=== PATIENT | female | born 1985 | race Hispanic/Latino ===

== ENCOUNTER → 2017-12-15 | Outpatient (CLI) | payer BC ==
[~2017-12-15] MED LIST: ACETAMINOPHEN-1 EAC4; DIATRIZOATE MEGL/DIATRIZOA SOD 30 ML BTL PO ONE; FLAGYL250 MG PO; IOPAMIDOL 370 MG/ML 200 ML INFUS..BTL INJ ONE; LEVAQUIN500 MG PO; SODIUM CHLORIDE 0.9% 50ML 50 ML ONE
--- NOTE | 2017-12-15 19:07 | Diagnostic Imaging Report ---
ADDENDUM #1 Addendum impression: Impression should state uncomplicated sigmoid diverticulitis. Signed by: Dr. Florentino Friedman M.D. on 12/16/2017 11:55 AM ORIGINAL REPORT EXAMINATION: CT of the abdomen and pelvis with contrast. TECHNIQUE: Helical CT images of the abdomen and pelvis were performed from the lung bases to the lesser trochanters after the intravenous administration of 100 cc of Isovue 370 and the oral administration of Gastrografin. Coronal and sagittal reformatted images were obtained. COMPARISON: May 05, 2017 CLINICAL HISTORY:Abdominal pain DISCUSSION: ABDOMEN/PELVIS: LOWER THORAX:Unremarkable. HEPATOBILIARY: No focal hepatic lesions. No intra-or extrahepatic biliary ductal dilation. The gallbladder is normal. SPLEEN: No splenomegaly. PANCREAS: No focal masses or ductal dilatation. ADRENALS: No adrenal nodules. KIDNEYS/URETERS: No hydronephrosis, stones, or solid mass lesions. PELVIC ORGANS/BLADDER: The bladder is normal. PERITONEUM/RETROPERITONEUM: No abscess. LYMPH NODES: No intra-abdominal, retroperitoneal, pelvic or inguinal lymphadenopathy. VESSELS: The celiac trunk,superior and inferior mesenteric and bilateral renal arteries are patent The portal, superior mesenteric and splenic veins are patent. GI TRACT: Sigmoid diverticulitis with wall thickening and adjacent stranding. BONES AND SOFT TISSUE: No bony destructive lesions. No soft tissue abnormalities. IMPRESSION: Uncomplicated sigmoid diverticulosis. Signed by: Dr. Florentino Friedman M.D. on 12/15/2017 7:03 PM
== END ==
LOC: CT 17:29
PROVIDERS: ATTEND Internal Medicine Gastroenterology
DX: R10.32 Left lower quadrant pain (principal)
CPT/HCPCS: 74177; 81025; Q9967

== ENCOUNTER 2017-12-25 23:52 | Inpatient (IN) | payer BC, OTHER ==
[~2017-12-25] VITALS: Ht 157.5 cm; Wt 102.7 kg
[~2017-12-25 23:52] MED LIST changes: -DIATRIZOATE MEGL/DIATRIZOA SOD 30 ML BTL PO ONE; -IOPAMIDOL 370 MG/ML 200 ML INFUS..BTL INJ ONE; -SODIUM CHLORIDE 0.9% 50ML 50 ML ONE
--- OUTSIDE RECORDS SUMMARY | 2017-12-25 23:54 | XMS REPORT ---
Author [facility] Address Unknown Phone Unavailable Care Team Providers Care Vision Rehabilitation Therapist Name Role Phone LEONARDO SCHNEIDER Unavailable Unavailable MONSTER HESS Unavailable Unavailable Problems This patient has no known problems. Allergies, Adverse Reactions, Alerts This patient has no known allergies or adverse reactions. Medications This patient has no known medications. Results Test Description Test Time Test Comments Text Results Atomic Results Result Comments CT ABDOMEN/PELVIS W [place] [address] Patient Name: YOCASTA PELAYO MR #: [id number] : 1985 Age/Sex: 32/F Req #: [id number] [facility] Physician: Ordered by: LEONARDO SCHNEIDER MD Report #: [id number] Location: CT Room/Bed: Procedure: [id number] CT/CT ABDOMEN/PELVIS W Exam Date: 12/15/17 Exam Time: 184 REPORT STATUS: Signed ADDENDUM #1 Addendum impression: Impression should state uncomplicated sigmoid diverticulitis. Signed by: Dr. Erum Dey M.D. on 12/16/2017 11:55 AM ORIGINAL REPORT EXAMINATION : CT of the abdomen and pelvis with contrast. TECHNIQUE: Helical CT images of the abdomen and pelvis were performed from the lung bases to the lesser trochanters after the intravenous administration of 100 cc of Isovue 370 and the oral administration of Gastrografin. Coronal and sagittal reformatted images were obtained. COMPARISON: May 05, 2017 CLINICAL HISTORY:Abdominal pain DISCUSSION: ABDOMEN/PELVIS: LOWER THORAX:Unremarkable. HEPATOBILIARY: No focal hepatic lesions. No intra-or extrahepatic biliary ductal dilation. The gallbladder is normal. SPLEEN: No splenomegaly. PANCREAS: No focal masses or ductal dilatation. ADRENALS: No adrenal nodules. KIDNEYS/URETERS: No hydronephrosis, stones, or solid mass lesions. PELVIC ORGANS/BLADDER: The bladder is normal. PERITONEUM/RETROPERITONEUM: No abscess. LYMPH NODES: No intra-abdominal, retroperitoneal, pelvic or inguinal lymphadenopathy. VESSELS: The celiac trunk,superior and inferior mesenteric and bilateral renal arteries are patent The portal, superior mesenteric and splenic veins are patent. GI TRACT: Sigmoid diverticulitis with wall thickening and adjacent stranding. BONES AND SOFT TISSUE: No bony destructive lesions. No soft tissue abnormalities. IMPRESSION: Uncomplicated sigmoid diverticulosis. Signed by: Dr. Erum Dey M.D. on 12/15/2017 7:03 PM Dictated By: ERUM DEY MD [id number] Transcribed By: KAUSHAL on 12/15/17 2853 COPY TO: LEONARDO SCHNEIDER MD CT ABDOMEN/PELVIS [place] [address] Patient Name: YOCASTA PELAYO MR #: [id number] : 1985 Age/Sex: 31/F Req #: [id number] Physician: Ordered by: MONSTER HESS MD Report #: [id number] Location: Room/Bed: Procedure: [id number] CT/CT ABDOMEN/PELVIS W Exam Date: 05/05/17 Exam Time: 0745 REPORT STATUS: Signed PROCEDURE: CT ABDOMEN AND PELVIS WITH CONTRAST TECHNIQUE: The abdomen and pelvis were scanned utilizing a multidetector helical scanner from the diaphragm to the lesser trochanter after the IV administration of 100 cc of Isovue 370 and the oral administration of Gastroview and water. Coronal and sagittal multiplanar reformations were obtained. COMPARISON: CT abdomen and pelvis 11/24/2016. INDICATIONS: LEFT LOWER QUADRANT PAIN FINDINGS: LOWER THORAX: Normal. HEPATOBILIARY: No focal hepatic lesions. No biliary ductal dilatation. SPLEEN: No splenomegaly. PANCREAS: No focal masses or ductal dilatation. ADRENALS: No adrenal nodules. KIDNEYS/ URETERS: No hydronephrosis, stones, or solid mass lesions. PELVIC ORGANS/ BLADDER: Unremarkable. PERITONEUM / RETROPERITONEUM: No free air or fluid. LYMPH NODES: No lymphadenopathy. VESSELS: Unremarkable. GI TRACT: Numerous diverticuli are present in the descending and sigmoid colon. Circumferential bowel wall thickening is present in the sigmoid colon with adjacent soft tissue inflammatory changes, series 2 image 62. Focal contained pneumoperitoneum is present in the left lower quadrant, adjacent to the region of bowel wall thickening, series 2 image 67. The contained perforation is positioned between the uterus and left ovary. No definite fistula is visualized. No drainable fluid collection. The stomach and small bowel are normal. Normal appendix. BONES AND SOFT TISSUES: Unremarkable. IMPRESSION: Acute diverticulitis with focal contained perforation. No drainable fluid collection. Dictated by: Lydia Herrera M.D. on 05/2017 at 8:34 Electronically approved by: Lydia Herrera M.D. on 2016 at 8:34 Dictated By: LYDIA HERRERA MD 3 Transcribed By: MICA on 05/05/17833 COPY TO: MONSTER HESS MD
[2017-12-26] VITALS (7 sets, daily range): BP systolic 99–118; BP diastolic 61–71
[2017-12-26] MEDS ORDERED: PANTOPRAZOLE 40 MG 10ML VIAL IV STA (00:12)
[2017-12-26] MEDS ORDERED: SODIUM CHLORIDE 0.9% 1000ML 1,000 ML IV STA (00:12)
[2017-12-26] MEDS ORDERED: HYDROMORPHONE 1MG/1ML INJ IV STA (00:12)
[2017-12-26] MEDS ORDERED: ONDANSETRON HCL 4 MG ORAL DISINTEGRATING TAB PO ONE (00:15)
[2017-12-26] MEDS ORDERED: MORPHINE SULFATE 2 MG/ML SYR IV STA (00:28)
[2017-12-26] MEDS: PIPER-TAZ 3.375 GM 50 ML IV SCH ×5 (00:42→23:58)
[2017-12-26 00:49] LABS: BASOPHILS # (AUTO) 0.1 (0.0-0.1); BASOPHILS % 0.3 % (0.0-1.0); EOSINOPHILS # (AUTO) 0.2 (0.0-0.4); EOSINOPHILS % 1.2 % (0.0-6.0); HEMATOCRIT 34.4 % (34.2-44.1); HEMOGLOBIN 10.6 g/dL (12.0-16.0); LYMPHOCYTES # (AUTO) 1.7 (1.0-3.2); MEAN CORPUSCULAR HEMOGLOBIN 25.7 pg (28-32); MEAN CORPUSCULAR HGB CONC 30.8 g/dL (31-35); MEAN CORPUSCULAR VOLUME 83.5 fL (81-99); MONOCYTES # (AUTO) 0.8 (0.2-0.8); MONOCYTES % 4.5 % (4.4-11.3); NEUTROPHILS # (AUTO) 14.2 (2.1-6.9); NEUTROPHILS % 83.6 % (38.7-80.0); PLATELET COUNT 453 x10e3/uL (140-360); RED BLOOD COUNT 4.12 x10e6/uL (3.6-5.1); RED CELL DISTRIBUTION WIDTH 14.5 % (11.7-14.4)
[2017-12-26] MEDS: METRONIDAZOLE 500MG/NS 100ML 100 ML IV SCH ×4 (00:51→17:58)
[2017-12-26 01:08] LABS: ALANINE AMINOTRANSFERASE 13 IU/L (0-55); ALBUMIN 3.1 g/dL (3.5-5.0); ALBUMIN/GLOBULIN RATIO 0.6 (0.8-2.0); ALKALINE PHOSPHATASE 76 IU/L (40-150); ANION GAP 15.1 mmol/L (8-16); BLOOD UREA NITROGEN 8 mg/dL (7-26); BUN/CREATININE RATIO 12 (6-25); CALCIUM 9.7 mg/dL (8.4-10.2); CARBON DIOXIDE 23 mmol/L (22-29); CHLORIDE 102 mmol/L (98-107); CREATININE, SERUM 0.67 mg/dL (0.57-1.11); EST GLOMERULAR FILTRATION RATE > 60 ML/MIN (60-); GLUCOSE 121 mg/dL (74-118); MAGNESIUM 1.6 MG/DL (1.3-2.1); POTASSIUM 4.1 mmol/L (3.5-5.1); SODIUM 136 mmol/L (136-145)
[2017-12-26 01:50] LABS: BILIRUBIN,URINE NEGATIVE (NEGATIVE); CLARITY,URINE CLEAR (CLEAR); COLOR,URINE YELLOW (YELLOW); KETONES,URINE NEGATIVE (NEGATIVE); LEUKOCYTE ESTERASE ,URINE TRACE (NEGATIVE); NITRITE,URINE NEGATIVE (NEGATIVE); PROTEIN,URINE DIPSTICK NEGATIVE (NEGATIVE); URINE UROBILINOGEN 0.2 mg/dL (0.2 - 1)
[2017-12-26 01:59] LABS: BACTERIA,URINE RARE /HPF; EPITHELIAL CELLS,URINE FEW /LPF; RBC,URINE 0-5 /HPF (0-5); WBC,URINE (MAN) 0-5 /HPF (0-5)
[2017-12-26] MEDS ORDERED: DICYCLOMINE HCL10 MG PO (02:01)
[2017-12-26] MEDS ORDERED: CIPROFLOXACIN500 MG PO (02:01)
[2017-12-26] MEDS ORDERED: METRONIDAZOLE500 MG PO (02:01)
[2017-12-26] MEDS ORDERED: ONDANSETRON HCL 4 MG ORAL DISINTEGRATING TAB PO PRN (02:15)
[2017-12-26] MEDS ORDERED: MORPHINE SULFATE 2 MG/ML SYR IV PRN (02:15)
[2017-12-26] MEDS: SODIUM CHLORIDE 0.9% 1000ML 1,000 ML IV SCH ×3 (02:17→17:59)
[2017-12-26] MEDS: PANTOPRAZOLE 40 MG 10ML VIAL IV SCH ×2 (08:58→17:58)
--- NOTE | 2017-12-26 16:28 | History and Physical ---
PCP: Claudio Jaimes MD CHIEF COMPLAINT: Failed outpatient treatment for sigmoid diverticulitis. HISTORY: The patient is a 32-year-old female with history of recurrent diverticulitis. So far this is the 2nd time this year. She has had this for the past 1 to 2 years. The one last year was in April. Patient came in with acute abdominal pain associated with nausea and vomiting. Patient recently saw Dr. Meeks for her diverticulitis. She was given Cipro, Bentyl and Flagyl. The patient's pain did not improve. As a matter of fact, it worsened. When she came in, her WBC was 17,000 associated with a left shift of 84%. The patient had a CT scan of the abdomen and pelvis recently with sigmoid diverticulosis with diverticulitis. The patient is otherwise stable at this time. She did have a low-grade temperature. PAST MEDICAL HISTORY: Recurrent diverticulitis in the sigmoid area. PAST SURGICAL HISTORY: Noncontributory. SOCIAL HISTORY: Patient does not smoke or use alcohol. No recreational drugs. ALLERGIES: NO KNOWN ALLERGIES. HOME MEDICATIONS: Bentyl, Cipro and Flagyl. PHYSICAL EXAMINATION: VITAL SIGNS: Temperature is 99. Blood pressure 107/62. Pulse rate 60. Respirations 22. GENERAL: The patient is in no acute distress. She is awake. HEENT: Normocephalic, atraumatic, anicteric. NECK: Supple grossly. PULMONARY: Diminished breath sounds. CARDIOVASCULAR: Regular rate and rhythm. ABDOMEN: Soft, obese. Tenderness in the left lower quadrant with no guarding or rebound tenderness. EXTREMITIES: No cyanosis or edema. NEUROLOGIC: There is no gross focal deficit. LABORATORY: Sodium is 136, potassium 4.1, chloride 102, bicarb 23, BUN 8, creatinine 0.6, glucose is 122. WBC 17, hemoglobin 10.6, hematocrit 34.4, platelets 453. IMPRESSION: Recurrent diverticulitis of the sigmoid colon, [id number] diverticulitis associated with failed outpatient treatment on previously oral medications given for which the patient did not improve. PLAN: Consultation with Dr. Meeks. Consultation with Dr. Damien Browning. Continue with home medications, IV fluids, pain medication and antibiotics. Job#: [id number]
[2017-12-27] VITALS: BP 99/65
[2017-12-27] MEDS: METRONIDAZOLE 500MG/NS 100ML 100 ML IV SCH ×4 (00:32→17:19)
[2017-12-27 04:00] VITALS: BP 98/50
[2017-12-27] MEDS ORDERED: DIATRIZOATE MEGL/DIATRIZOA SOD 30 ML BTL PO ONE (05:14)
[2017-12-27] MEDS: PIPER-TAZ 3.375 GM 50 ML IV SCH ×3 (05:19→17:19)
[2017-12-27] MEDS ORDERED: SODIUM CHLORIDE 0.9% 50ML 50 ML ONE (05:55)
[2017-12-27] MEDS ORDERED: IOPAMIDOL 370 MG/ML 200 ML INFUS..BTL INJ ONE (05:55)
[2017-12-27 06:15] LABS: BASOPHILS # (AUTO) 0.1 (0.0-0.1); BASOPHILS % 0.5 % (0.0-1.0); EOSINOPHILS # (AUTO) 0.3 (0.0-0.4); EOSINOPHILS % 2.6 % (0.0-6.0); HEMATOCRIT 30.6 % (34.2-44.1); HEMOGLOBIN 9.3 g/dL (12.0-16.0); LYMPHOCYTES # (AUTO) 2.6 (1.0-3.2); MEAN CORPUSCULAR HEMOGLOBIN 26.1 pg (28-32); MEAN CORPUSCULAR HGB CONC 30.4 g/dL (31-35); MONOCYTES # (AUTO) 0.6 (0.2-0.8); MONOCYTES % 5.7 % (4.4-11.3); NEUTROPHILS # (AUTO) 6.7 (2.1-6.9); NEUTROPHILS % 65.9 % (38.7-80.0); PLATELET COUNT 397 x10e3/uL (140-360); RED BLOOD COUNT 3.56 x10e6/uL (3.6-5.1); RED CELL DISTRIBUTION WIDTH 14.6 % (11.7-14.4)
[2017-12-27 06:32] LABS: ALANINE AMINOTRANSFERASE 10 IU/L (0-55); ALBUMIN 2.5 g/dL (3.5-5.0); ALBUMIN/GLOBULIN RATIO 0.7 (0.8-2.0); ALKALINE PHOSPHATASE 56 IU/L (40-150); ANION GAP 9.8 mmol/L (8-16); BLOOD UREA NITROGEN < 5 mg/dL (7-26); CALCIUM 8.7 mg/dL (8.4-10.2); CARBON DIOXIDE 27 mmol/L (22-29); CHLORIDE 109 mmol/L (98-107); CREATININE, SERUM 0.59 mg/dL (0.57-1.11); EST GLOMERULAR FILTRATION RATE > 60 ML/MIN (60-); GLUCOSE 92 mg/dL (74-118); POTASSIUM 3.8 mmol/L (3.5-5.1); SODIUM 142 mmol/L (136-145)
[2017-12-27 06:33] LABS: BUN/CREATININE RATIO 8 (6-25)
--- NOTE | 2017-12-27 06:38 | Consultation ---
DATE OF CONSULTATION: December 26, 2017 HISTORY: Ms. Browning is a patient that we saw in the clinic for the first time on December 15 of this year when she presented with abdominal pain in the left lower quadrant for about a day prior to her admission, no apparent triggering factor. It was sharp, described it as electricity felt in her abdomen. Does not radiate. Pain was moderate. No aggravated factor and no releasing factor. Associated with constipation. She denied at the time red blood stool, melena, nausea, vomiting, hematemesis, fever, or dysphagia. She said that she 6 months ago had similar episode of pain and she was diagnosed with diverticulitis, however, she denied having any colonoscopy. When we saw her in the clinic, we initiated a blood evaluation including urinalysis, CT scan of the abdomen, was started on Bentyl. We treated her constipation with polyethylene glycol, and patient had a followup appointment. However, she came back to the emergency room yesterday with excruciating abdominal pain and she was admitted with a diagnosis of diverticulitis. Again, patient said that this is a second attack in the past 6 months. While she admitted at the emergency room, she had a CT scan of the abdomen with contrast, it showed sigmoid diverticulosis, no evidence of diverticulitis, and I was asked to see her for further evaluation. ALLERGIES: NOTHING. CURRENT MEDICATIONS: Flagyl, piperacillin, morphine, Zofran, Protonix. PAST MEDICAL HISTORY: Only for diverticulosis and bouts of diverticulitis. SURGICAL HISTORY: She has twice. FAMILY HISTORY: Unremarkable. SOCIAL HISTORY: She works. She is , has 4 kids. She does not smoke or does not drink. REVIEW OF SYSTEMS: Unremarkable. PHYSICAL EXAMINATION: GENERAL: Awake, alert, oriented, hemodynamically stable. VITAL SIGNS: Temperature 98, blood pressure 107/62, and pulse 60. NECK: Supple. No node or mass. LUNGS: Clear to auscultation. HEART: Regular-regular rhythm. ABDOMEN: Soft, not tender. No acute sign. EXTREMITIES: No edema. CENTRAL NERVOUS SYSTEM: Motor function grossly intact. ADMITTING LAB: Her white cell count 17,000, hemoglobin 10, hematocrit 34, platelets 453,000. BUN and creatinine normal. Sodium and potassium normal. Albumin of 3.1. Total protein 7.9, magnesium 1.6. Liver function normal. Calcium 9.7. IMPRESSION: Recurrent abdominal pain. Patient noted to have sigmoid diverticulosis. CT scan does not show any evidence of diverticulitis. She feels better today as she has no complaints. Will continue her current treatment. She needs to have colonoscopy at the first opportunity and based on that results will determine is needed. If it turns out to be this is truly diverticulitis again, we need to contemplate possible surgeries with her age and this is a second attack. Job#: [id number]
--- NOTE | 2017-12-27 07:02 | Diagnostic Imaging Report ---
EXAM: CT ABDOMEN/PELVIS W DATE: 12/27/2017 7:00 AM INDICATION: Diverticulitis COMPARISON: 12/15/2017 TECHNIQUE: The abdomen and pelvis were scanned using a multidetector helical scanner. Coronal and sagittal reformations were obtained. Routine protocol performed. IV Contrast: 100 ml Isovue 370 FINDINGS: LOWER THORAX: No consolidations LIVER/BILIARY: No masses. No ductal dilatation. GALLBLADDER/SPLEEN/PANCREAS: Unremarkable ADRENALS: No nodules KIDNEYS: Symmetric perfusion. No enhancing masses. No hydronephrosis. GI TRACT: There is again segmental thickening of the sigmoid colon with surrounding inflammatory changes. Scattered diverticuli are seen. There is likely an inner sigmoid fistula best seen on axial image 66-69. VESSELS: Unremarkable PERITONEUM/RETROPERITONEUM: Two foci of gas adjacent to the sigmoid colon may be extraluminal related to microperforation. No drainable collection. LYMPH NODES: No lymphadenopathy REPRODUCTIVE ORGANS/BLADDER: Unremarkable. Inflammatory changes abut or involve the left adnexa/ovary. SOFT TISSUES: Unremarkable BONES: No suspicious bone lesions. 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 No drainable collection. Signed by: Dr Effie Correa MD on 12/27/2017 6:59 AM
[2017-12-27 08:59] VITALS: BP 106/64
[2017-12-27 09:46] VITALS: BP 106/64
[2017-12-27] MEDS: SODIUM CHLORIDE 0.9% 1000ML 1,000 ML IV SCH (11:37)
[2017-12-27] MEDS: PANTOPRAZOLE 40 MG 10ML VIAL IV SCH ×2 (11:52→17:19)
[2017-12-27 16:19] VITALS: BP 103/59
--- NOTE | 2017-12-27 18:10 | Progress Note ---
DATE: December 27, 2017 Ms. Browning is doing much better, completely asymptomatic today. She is still on IV antibiotic. Her white cell count is down today to 10 and hemoglobin 9.3, temperature 97, blood pressure 103/59. Dr. Duncan of infectious disease came and saw her today. She will continue taking the antibiotic as an outpatient. Also, will plan the colonoscopy as an outpatient and then will decide if further surgical care is needed regarding her problem. Job#: [id number]
[2017-12-27 21:02] VITALS: BP 102/62
[2017-12-28] VITALS (7 sets, daily range): BP systolic 98–115; BP diastolic 51–71
[2017-12-28] MEDS: PIPER-TAZ 3.375 GM 50 ML IV SCH ×4 (00:05→18:00)
[2017-12-28] MEDS ORDERED: SODIUM CHLORIDE 0.9% 250ML 250 ML ONE (00:16)
[2017-12-28] MEDS: METRONIDAZOLE 500MG/NS 100ML 100 ML IV SCH ×4 (00:40→18:00)
[2017-12-28] MEDS: PANTOPRAZOLE 40 MG 10ML VIAL IV SCH ×2 (09:20→16:29)
[2017-12-29] VITALS: BP 105/54
[2017-12-29] MEDS: METRONIDAZOLE 500MG/NS 100ML 100 ML IV SCH ×4 (00:50→13:00)
[2017-12-29] MEDS: PIPER-TAZ 3.375 GM 50 ML IV SCH ×4 (01:15→11:54)
[2017-12-29 04:00] VITALS: BP 102/65
[2017-12-29 08:08] VITALS: BP 93/56
[2017-12-29 08:43] VITALS: BP 93/56
[2017-12-29] MEDS: PANTOPRAZOLE 40 MG 10ML VIAL IV SCH (08:43)
[2017-12-29 12:00] VITALS: BP 113/69
--- NOTE | 2017-12-29 14:30 | Consultation ---
DATE OF CONSULTATION: REASON FOR CONSULTATION: Diverticulitis. HISTORY OF PRESENT ILLNESS: This patient is a very pleasant, 32-year-old female with history of obesity and history of diverticular disease. The patient had diverticulitis back in April. She was in the hospital. She took IV antibiotic, then oral antibiotic. Never followed up for insurance reason. She comes in again with abdominal pain in the same spot. The patient was admitted. She was diagnosed with diverticulitis. The patient apparently before she came here was on Cipro and Flagyl with some improvement, but not totally. Now on IV antibiotics. She is taking now metronidazole and Zosyn, she is doing much better. But the patient would like to go home. She is aware that she is going to need surgery for partial resection of the colon. The patient is currently doing better, has no complaints. Lying in bed comfortably. She said her abdominal pain is better. PAST MEDICAL HISTORY: Obesity. Recurrent diverticulitis. Apparently, it is in the same area. PHYSICAL EXAMINATION GENERAL: She is currently alert and oriented, does not seem to be in acute distress. VITALS: Stable, currently afebrile. HEENT: Does not appear icteric. Normocephalic. NECK: Supple. No JVD. No lymphadenopathy. No thyromegaly. CHEST: Clear bilaterally. HEART: S1 and S2. No S3, S4 or murmur. ABDOMEN: Soft. Bowel sounds present. Nontender. EXTREMITIES: No edema. SKIN: There is no rash. LABORATORY DATA: Reviewed. IMPRESSION: Diverticulitis. The patient does not want to go home with IV. She could not do it because of her job. I am going to discharge her with Levaquin and Flagyl for 3 weeks. Obtain a CAT scan of the abdomen and pelvis in 3 weeks. If there is improvement then and total resolution, then she can proceed with surgery. If not, then I think we have to go back on intravenous therapy as an outpatient. The patient agrees with the plan. She fully understands the risks. Will follow as an outpatient. Job#: [id number]
[2017-12-29] MEDS ORDERED: LEVAQUIN500 MG PO (14:38)
[2017-12-29] MEDS ORDERED: FLAGYL250 MG PO (14:39)
== END 2017-12-29 14:53 | disposition home or self-care (01) | DRG 392 ==
LOC: ER 23:52 → MED/SURG2 12-26 02:16
PROVIDERS: ADMIT Internal Medicine; ATTEND Internal Medicine
DX: K57.32 Diverticulitis of large intestine without perforation or abscess without bleeding (principal); Z68.41 Body mass index [BMI] 40.0-44.9, adult; E66.01 Morbid (severe) obesity due to excess calories
CPT/HCPCS: 36415; 74177; 80053; 81001; 81025; 83605; 83735; 85025; 87040; 87086; 99284; J2270; J2543; J7030; J7050; Q9967

== ENCOUNTER → 2018-02-15 | Day surgery (SDC) | payer BC, OTHER ==
[~2018-02-15] MED LIST changes: +CIPROFLOXACIN500 MG PO; +DICYCLOMINE HCL10 MG PO; +FENTANYL CITRATE/PF 100MCG/2 ML INJ ONE; +HYOSCYAMINE SULFATE 0.5 MG/ML AMP ONE; +LIDOCAINE HCL 2% LOCAL INJ 5 ML SDV VIAL INJ ONE; +METRONIDAZOLE500 MG PO; +MIDAZOLAM HCL 2 MG/2 ML VIAL ONE; +PROPOFOL IV EMULSION 10 MG/ML 50 ML VIAL ONE
== END | disposition home or self-care (01) ==
LOC: OR 11:53
PROVIDERS: ATTEND Internal Medicine Gastroenterology
DX: K57.92 Diverticulitis of intestine, part unspecified, without perforation or abscess without bleeding (principal); K56.699 Other intestinal obstruction unspecified as to partial versus complete obstruction; K59.00 Constipation, unspecified; Z68.41 Body mass index [BMI] 40.0-44.9, adult
CPT/HCPCS: 45378; 81025; J1980; J2001; J2250

== ENCOUNTER 2018-03-09 20:53 | Inpatient (IN) | payer BC ==
[~2018-03-09] VITALS: Ht 157.5 cm; Wt 98.4 kg
[~2018-03-09 20:53] MED LIST changes: -DIATRIZOATE MEGL/DIATRIZOA SOD 30 ML BTL PO ONE; -IOPAMIDOL 370 MG/ML 200 ML INFUS..BTL INJ ONE; -NO HOME MEDS; -SODIUM CHLORIDE 0.9% 50ML 50 ML ONE
[2018-03-09 21:22] LABS: BASOPHILS # (AUTO) 0.1 (0.0-0.1); BASOPHILS % 0.4 % (0.0-1.0); EOSINOPHILS # (AUTO) 0.2 (0.0-0.4); EOSINOPHILS % 1.6 % (0.0-6.0); HEMATOCRIT 35.8 % (34.2-44.1); LYMPHOCYTES % 20.1 % (18.0-39.1); MEAN CORPUSCULAR HEMOGLOBIN 26.8 pg (28-32); MEAN CORPUSCULAR HGB CONC 30.7 g/dL (31-35); MEAN CORPUSCULAR VOLUME 87.1 fL (81-99); MONOCYTES # (AUTO) 0.8 (0.2-0.8); NEUTROPHILS # (AUTO) 10.9 (2.1-6.9); NEUTROPHILS % 72.6 % (38.7-80.0); PLATELET COUNT 341 x10e3/uL (140-360); RED BLOOD COUNT 4.11 x10e6/uL (3.6-5.1); RED CELL DISTRIBUTION WIDTH 15.3 % (11.7-14.4)
[2018-03-09 21:23] LABS: BILIRUBIN,URINE NEGATIVE (NEGATIVE); CLARITY,URINE SL CLOUDY (CLEAR); COLOR,URINE YELLOW (YELLOW); KETONES,URINE NEGATIVE (NEGATIVE); LEUKOCYTE ESTERASE ,URINE TRACE (NEGATIVE); NITRITE,URINE NEGATIVE (NEGATIVE); PROTEIN,URINE DIPSTICK NEGATIVE (NEGATIVE); URINE UROBILINOGEN 0.2 mg/dL (0.2 - 1)
[2018-03-09] MEDS: LEVOFLOXACIN 500MG/D5W 100ML 100 ML IV SCH (21:30)
[2018-03-09 21:36] LABS: BACTERIA,URINE MANY /HPF; EPITHELIAL CELLS,URINE RARE /LPF; RBC,URINE 0-5 /HPF (0-5)
[2018-03-09 21:40] LABS: ALANINE AMINOTRANSFERASE 12 IU/L (0-55); ALBUMIN 3.1 g/dL (3.5-5.0); ALBUMIN/GLOBULIN RATIO 0.7 (0.8-2.0); ALKALINE PHOSPHATASE 89 IU/L (40-150); ANION GAP 15.5 mmol/L (8-16); BLOOD UREA NITROGEN 10 mg/dL (7-26); BUN/CREATININE RATIO 15 (6-25); CALCIUM 9.3 mg/dL (8.4-10.2); CARBON DIOXIDE 20 mmol/L (22-29); CHLORIDE 104 mmol/L (98-107); CREATININE, SERUM 0.65 mg/dL (0.57-1.11); EST GLOMERULAR FILTRATION RATE > 60 ML/MIN (60-); GLUCOSE 122 mg/dL (74-118); POTASSIUM 3.5 mmol/L (3.5-5.1); SODIUM 136 mmol/L (136-145)
[2018-03-09] MEDS ORDERED: MORPHINE SULFATE 2 MG/ML SYR IV PRN (22:00)
[2018-03-09] MEDS ORDERED: ONDANSETRON HCL INJ 2 MG/ML VIAL IV PRN (22:00)
[2018-03-09] MEDS ORDERED: NO HOME MEDS (22:06)
[2018-03-09] MEDS: SODIUM CHLORIDE 0.9% 1000ML 1,000 ML IV SCH (22:19)
[2018-03-09 22:26] VITALS: BP 117/58
[2018-03-09 23:27] VITALS: BP 117/58
[2018-03-09 23:43] VITALS: BP 117/58
[2018-03-09 23:44] VITALS: BP 117/58
[2018-03-10] VITALS (8 sets, daily range): BP systolic 91–121; BP diastolic 50–70
[2018-03-10 05:51] LABS: BASOPHILS % 0.2 % (0.0-1.0); EOSINOPHILS # (AUTO) 0.2 (0.0-0.4); EOSINOPHILS % 1.7 % (0.0-6.0); HEMATOCRIT 33.8 % (34.2-44.1); HEMOGLOBIN 10.3 g/dL (12.0-16.0); LYMPHOCYTES # (AUTO) 2.1 (1.0-3.2); LYMPHOCYTES % 19.7 % (18.0-39.1); MEAN CORPUSCULAR HEMOGLOBIN 25.9 pg (28-32); MEAN CORPUSCULAR HGB CONC 30.5 g/dL (31-35); MEAN CORPUSCULAR VOLUME 85.1 fL (81-99); MONOCYTES # (AUTO) 0.6 (0.2-0.8); MONOCYTES % 5.3 % (4.4-11.3); NEUTROPHILS # (AUTO) 7.6 (2.1-6.9); NEUTROPHILS % 72.7 % (38.7-80.0); PLATELET COUNT 330 x10e3/uL (140-360); RED BLOOD COUNT 3.97 x10e6/uL (3.6-5.1); RED CELL DISTRIBUTION WIDTH 15.2 % (11.7-14.4)
[2018-03-10] MEDS: SODIUM CHLORIDE 0.9% 1000ML 1,000 ML IV SCH ×3 (05:54→21:56)
[2018-03-10] MEDS: METRONIDAZOLE 500MG/NS 100ML 100 ML IV SCH ×5 (05:54→23:51)
[2018-03-10 06:23] LABS: ALANINE AMINOTRANSFERASE 11 IU/L (0-55); ALBUMIN 2.7 g/dL (3.5-5.0); ALBUMIN/GLOBULIN RATIO 0.7 (0.8-2.0); ALKALINE PHOSPHATASE 79 IU/L (40-150); ANION GAP 12.9 mmol/L (8-16); BLOOD UREA NITROGEN 8 mg/dL (7-26); BUN/CREATININE RATIO 14 (6-25); CALCIUM 8.7 mg/dL (8.4-10.2); CARBON DIOXIDE 24 mmol/L (22-29); CHLORIDE 107 mmol/L (98-107); CREATININE, SERUM 0.56 mg/dL (0.57-1.11); EST GLOMERULAR FILTRATION RATE > 60 ML/MIN (60-); GLUCOSE 92 mg/dL (74-118); POTASSIUM 3.9 mmol/L (3.5-5.1); SODIUM 140 mmol/L (136-145)
[2018-03-10] MEDS ORDERED: ACETAMINOPHEN 325 MG TAB PO PRN (13:00)
[2018-03-10] MEDS ORDERED: MORPHINE SULFATE INJ 4 MG/ML INJ IV PRN (16:00)
[2018-03-10] MEDS: LEVOFLOXACIN 500MG/D5W 100ML 100 ML IV SCH (20:09)
[2018-03-11] VITALS (8 sets, daily range): BP systolic 89–120; BP diastolic 48–73
[2018-03-11] MEDS: NYSTATIN SUSPENSION 5 ML UDC PO SCH ×4 (05:00→17:57)
[2018-03-11] MEDS: SODIUM CHLORIDE 0.9% 1000ML 1,000 ML IV SCH ×2 (05:52→13:56)
[2018-03-11] MEDS: METRONIDAZOLE 500MG/NS 100ML 100 ML IV SCH ×2 (05:52→12:00)
[2018-03-11 06:38] LABS: FERRITIN 20.49 ng/mL (4.63-204.00)
[2018-03-11 07:04] LABS: FOLATE 9.2 ng/mL (7.0-15.4)
[2018-03-11] MEDS ORDERED: METRONIDAZOLE 500 MG TAB PO SCH (18:00)
[2018-03-11] MEDS ORDERED: FLAGYL250 MG PO (18:14)
[2018-03-11] MEDS ORDERED: CIPRO500 MG PO (18:15)
== END 2018-03-11 20:27 | disposition home or self-care (01) | DRG 392 ==
LOC: ER 20:53 → MED/SURG3 21:56
PROVIDERS: ADMIT Internal Medicine; ATTEND Internal Medicine
DX: K57.20 Diverticulitis of large intestine with perforation and abscess without bleeding (principal); D64.9 Anemia, unspecified; D72.829 Elevated white blood cell count, unspecified
CPT/HCPCS: 36415; 74177; 80053; 81001; 81025; 82607; 82728; 82746; 82948; 83540; 84466; 85025; 85045; 96361; 99284; J1956; J7030; Q9967

== ENCOUNTER → 2018-03-09 | Outpatient (CLI) | payer BC ==
[~2018-03-09] MED LIST changes: +DIATRIZOATE MEGL/DIATRIZOA SOD 30 ML BTL PO ONE; -FENTANYL CITRATE/PF 100MCG/2 ML INJ ONE; -HYOSCYAMINE SULFATE 0.5 MG/ML AMP ONE; +IOPAMIDOL 370 MG/ML 200 ML INFUS..BTL INJ ONE; -LIDOCAINE HCL 2% LOCAL INJ 5 ML SDV VIAL INJ ONE; -MIDAZOLAM HCL 2 MG/2 ML VIAL ONE; +NO HOME MEDS; -PROPOFOL IV EMULSION 10 MG/ML 50 ML VIAL ONE; +SODIUM CHLORIDE 0.9% 50ML 50 ML ONE
--- NOTE | 2018-03-09 12:38 | Diagnostic Imaging Report ---
PROCEDURE: CT ABDOMEN AND PELVIS WITH CONTRAST TECHNIQUE: The abdomen and pelvis were scanned utilizing a multidetector helical scanner from the diaphragm to the lesser trochanter after the IV administration of 100 cc of Isovue 370 and the oral administration of Gastrografin/water. Coronal and sagittal multiplanar reformations were obtained. COMPARISON: Multiple priors, most recently 12/27/2017 INDICATIONS: DIVERTICULITIS FINDINGS: LOWER THORAX: Normal. HEPATOBILIARY: No focal hepatic lesions. No biliary ductal dilatation. SPLEEN: No splenomegaly. PANCREAS: No focal masses or ductal dilatation. ADRENALS: No adrenal nodules. KIDNEYS/URETERS: No hydronephrosis, stones, or solid mass lesions. PELVIC ORGANS/BLADDER: Unremarkable. A few small foci of air within the vagina are nonspecific. PERITONEUM / RETROPERITONEUM: No free air or fluid. LYMPH NODES: No lymphadenopathy. VESSELS: Unremarkable. GI TRACT: Redemonstrated is focal wall thickening of the sigmoid colon with associated stranding within the sigmoid mesentery. There is a small focus of gas density adjacent to the sigmoid (series 2, image 65) which could represent extraluminal air or air within a diverticulum. The inflamed sigmoid is densely adherent to the left ovary. Otherwise no evidence of bowel wall thickening or obstruction. The appendix is normal. BONES AND SOFT TISSUES: Unremarkable. IMPRESSION: Acute sigmoid diverticulitis. There is a small focus of gas density adjacent to the sigmoid which could represent small, contained perforation. As before, the inflamed sigmoid appears density in the left ovary. Dictated by: Josias Warner M.D. on 03/09/2018 at 12:44 Electronically approved by: Josias Warner M.D. on 03/09/2018 at 12:44
== END ==
LOC: CT 10:24
PROVIDERS: ATTEND Internal Medicine Gastroenterology
DX: Z87.19 Personal history of other diseases of the digestive system (principal)
CPT/HCPCS: 74177; 81025; Q9967

== ENCOUNTER → 2018-07-12 | Day surgery (SDC) | payer BC ==
[~2018-07-12] MED LIST changes: +CIPRO500 MG PO; +FENTANYL CITRATE/PF 100MCG/2 ML INJ ONE; +MIDAZOLAM HCL 2 MG/2 ML VIAL ONE; +NO HOME MEDS; +PROPOFOL IV EMULSION 10 MG/ML 50 ML VIAL ONE; +SIMETHICONE 40 MG/0.6 ML BTL ONE
--- OUTSIDE RECORDS SUMMARY | 2018-07-12 05:15 | XMS REPORT | Continuity of Care Document ---
Author Author Rylan byrne [facility] Emergency Department Interface Address Unknown Phone Unavailable Problems Problem Status Onset Date Classification Date Reported Comments Source UNK Active 03/23/2018 [facility] K57.80 Active 03/23/2018 [facility] DVTRCLI OF INTEST, PART UNSP, W PERF AND Active [facility] Medications Medication Details Route Status Patient Instructions Ordering Provider Order Date Source Allergies, Adverse Reactions, Alerts Substance Category Reaction Severity Reaction type Status Date Reported Comments Source Immunizations Immunization Date Given Site Status Last Updated Comments Source Results Order Name Results Value Reference Range Date Interpretation Comments Source Abdomen/Pelvis w IV contrast CT Abdomen/Pelvis w IV contrast CT Clinical indication: - s/p sigmoid colon resection, nausea, vomiting. Status post laparoscopic sigmoid colon resection with end colostomy and lysis of pelvic adhesions on 04/15/2018 Comparison: C 80 abdomen pelvis 12/27/2017 TECHNIQUE: Volumetric CT acquisition of the abdomen and pelvis after the intravenous administration contrast. Axial, coronal and sagittal reconstructions. IV contrast: 100 mL Omnipaque 300 Enteric contrast: Omnipaque CT imaging performed at this location utilizes radiation dose optimization techniques which include one or more of the following: -Automated exposure control -Adjustment of the mA and/or kV according to patient size -Use of iterative reconstruction technique CT Radiation Dose DLP 1150 mGy-cm FINDINGS: LOWER THORAX: Pneumomediastinum is present. LIVER: The liver is unremarkable. BILIARY TREE: No intra- or extrahepatic biliary ductal dilation. GALLBLADDER: Normal CT appearance of the gallbladder. PANCREAS: The pancreas is unremarkable. SPLEEN: Normal enhancement of the spleen. ADRENALS: Normal. KIDNEYS AND URETERS: The kidneys demonstrate symmetric uptake of intravenous contrast. There is no hydronephrosis. GASTROINTESTINAL TRACT: The stomach is unremarkable. Multiple dilated, fluid- filled loops of small bowel are seen in the abdomen with gradual transition to normal caliber small bowel loops in the left upper abdomen (series 3 image 70). There is postsurgical change of partial colectomy with a left mid abdominal colostomy. A rectal stump is present. A metallic object is present in the rectum, possibly a clip. The appendix is unremarkable. PELVIS: Air is present in the urinary bladder, which may be secondary to recent instrumentation. A 4 x 3.7 cm right adnexal cyst is present. PERITONEUM AND RETROPERITONEUM: There is a small amount of free intraperitoneal air, predominantly in the upper abdomen. Small volume free intraperitoneal fluid is present. Redemonstrated stranding in the left lower quadrant, without discrete circumscribed fluid collection. LYMPH NODES: No abdominal or pelvic lymphadenopathy. VASCULATURE: The abdominal aorta is normal in caliber. The portal vein is patent. The IVC is unremarkable. BONES: No acute osseous abnormality. SOFT TISSUES: Subcutaneous emphysema is present in the anterior abdominal wall. There is also emphysema within the abdominal wall deep tissues. A 3.3 x 3.9 x 4 cm fluid collection is seen adjacent to the stoma in the left abdominal wall. A midline abdominal incision is present containing fluid and air. IMPRESSION: 1. Multiple dilated, fluid-filled loops of small bowel in the upper abdomen with relative transition to nondilated loops of distal small bowel. Findings may represent small bowel obstruction or postoperative ileus. Follow-up with serial abdominal radiographs is recommended. 2. Post surgical change of recent sigmoid colectomy with colostomy creation with small amount of pneumoperitoneum, partially visualized pneumomediastinum, and emphysema in the anterior abdominal wall. 3. A 3.3 x 3.9 x 4 cm postoperative fluid collection adjacent to the stoma. 4. A 4 cm right adnexal cyst. 5. Small volume free intraperitoneal fluid. SL: [id number] 04/19/2018 - - Read by: Denise Bateman MD Dictated Date/time: 04/20/18 10:14 Electronically Signed by: Denise Bateman MD 04/20/18 10:32 FINAL REPORT [facility] Vital Signs Vital Sign Value Date Comments Source Encounters Location Location Details Encounter Type Encounter Number Reason For Visit Attending Provider ADM Date DC Date Status Source Outpatient [id number] [facility] 03/01/2018 Active [id number] [facility] Active [facility] Out[facility] [id number] [facility] 04/07/2018 Active [facility] Outpatient [id number] [facility] 04/15/2018 Active [facility] Outpatient [id number] [facility] 05[facility]10/2018 [id number] Active [facility] Out[facility] [id number] [facility] 07/15/2018 Active [facility] Procedures Procedure Code Date Perfomer Comments Source
[2018-07-12 07:55] VITALS: BP 110/64
== END | disposition home or self-care (01) ==
LOC: OR 05:12
PROVIDERS: ATTEND Internal Medicine Gastroenterology
DX: D64.9 Anemia, unspecified (principal); K29.70 Gastritis, unspecified, without bleeding; K44.9 Diaphragmatic hernia without obstruction or gangrene; Z90.49 Acquired absence of other specified parts of digestive tract; Z68.41 Body mass index [BMI] 40.0-44.9, adult
CPT/HCPCS: 43239; 44388; 81025; J2250; 45378

== ENCOUNTER → 2018-10-04 | Outpatient (CLI) | payer BC ==
[~2018-10-04] MED LIST changes: -FENTANYL CITRATE/PF 100MCG/2 ML INJ ONE; -MIDAZOLAM HCL 2 MG/2 ML VIAL ONE; -PROPOFOL IV EMULSION 10 MG/ML 50 ML VIAL ONE; -SIMETHICONE 40 MG/0.6 ML BTL ONE
--- NOTE | 2018-10-04 17:17 | Diagnostic Imaging Report ---
EXAMINATION: CHEST 2 VIEWS INDICATION: Cough. COMPARISON: CT abdomen and pelvis 12/27/2017. 12/15/2017. FINDINGS: PA and lateral views TUBES and LINES: None. LUNGS: Lungs are not well inflated. There are bibasilar atelectasis. There is no evidence of pneumonia or pulmonary edema. PLEURA: No pleural effusion or pneumothorax. HEART AND MEDIASTINUM: The cardiomediastinal silhouette is unremarkable. BONES AND SOFT TISSUES: No acute osseous lesion. Soft tissues are unremarkable. UPPER ABDOMEN: No free air under the diaphragm. IMPRESSION: Bibasilar atelectasis. Signed by: Dr. Mynor Calderon M.D. on 10/04/2018 5:14 PM
== END ==
LOC: RAD 16:26
PROVIDERS: ATTEND Internal Medicine
DX: R05 Cough (principal)
CPT/HCPCS: 71046